=== PATIENT | female | born 1940 | race Caucasian/White ===

== ENCOUNTER → 2018-03-14 07:50 | Outpatient (CLI) | payer MEDICARE, SELFPAY ==
--- NOTE | 2018-03-14 07:55 | BI_ITS ---
MAMMOGRAPHY - BILATERAL SCREENING REASON FOR EXAM: Female, 77 years old. Routine annual screening examination. PERTINENT HISTORY: Non-contributory. TECHNIQUE: Digital bilateral breast karen (3D mammographic acquisition) in the CC and MLO projections. 2-D mediolateral oblique (MLO) and craniocaudad (CC) views of both breasts were obtained. CAD: Full Field Digital Mammography with Computer Added Detection was performed. COMPARISON: Comparison is made with prior study dated February 06, 2017 and December 22, 2015. FINDINGS: Breast Composition: There are scattered areas of fibroglandular density. There are no dominant masses or suspicious calcifications. Stable appearance of the benign appearing bilateral axillary lymph nodes. No other significant abnormalities are identified. There has been no significant change since the prior study. BI/SCREENING MAMM (CAD), BILAT IMPRESSION: Stable bilateral screening mammogram. Yearly follow-up mammogram recommended. (A) ASSESSMENT CATEGORY: BIRADS Category 2: Benign. A letter regarding these results will be sent to the patient by the facility within 30 days. Approximately 10% of breast cancers are not detected by mammography. A normal mammogram should not delay biopsy of a clinically suspicious abnormality. [id number] Electronically Signed: Alexis Morgan MD at 10:26 EDT Tel [phone], Service support ,
== END ==
PROVIDERS: Family Provider Internal Medicine; PCP Internal Medicine; Visit Provider Internal Medicine
DX: Z12.31 Encounter for screening mammogram for malignant neoplasm of breast (principal)
CPT/HCPCS: 77063; 77067

== ENCOUNTER → 2018-04-08 06:31 | Outpatient (CLI) | payer MEDICARE, SELFPAY ==
--- NOTE | 2018-04-08 06:36 | ECHOD_ITS ---
Reason For Study: Abnormal EKG Procedure This was a 2D Doppler, Color Flow transthoracic echocardiogram. The exam was of adequate technical quality. Exam performed in department. Left Ventricle Normal LV size. Left ventricular systolic function is normal. The estimated ejection fraction is 60 %. Normal diastology for age. No regional wall motion abnormalities noted. Right Ventricle Normal RV size. Normal systolic function. Atria Normal left atrium. Normal right atrium. No doppler evidence for ASD. Mitral Valve There is mild mitral annular calcification. Normal mitral valve. Mild (1+) mitral valve insufficiency. Tricuspid Valve Normal tricuspid valve. Trivial tricuspid valve insufficiency. Right ventricular systolic pressure estimated to be 29 mmHg. Aortic Valve Trisinus/trileaflet aortic valve. Mild focal aortic valve calcification. Trivial aortic valve insufficiency. Pulmonic Valve The pulmonic valve is not well visualized. Great Vessels Normal sized aortic root. Pericardium/Pleural No pericardial effusion. MMode/2D Measurements & Calculations LVIDd: 4.4 cm IVSd: 1.0 cm Ao root diam: 3.4 cm LVIDs: 2.7 cm LVPWd: 1.0 cm LA dimension: 3.6 cm RVDd: 3.4 cm FS: 39.6 % LAV(MOD-bp): 36.2 ml LA A4 area: 11.9 cm2 RA A4 area: 13.1 cm2 LAV(MOD-bp) Indexed: 20.9 ml/m2 LAV(MOD-sp2): 38.0 ml LAV(MOD-sp4): 26.9 ml Time Measurements MV dec time: 0.23 sec Doppler Measurements & Calculations MV E max gerald: 75.0 cm/sec Lat Peak E' Gerald: 7.9 cm/sec Med Peak E' Gerald: 5.7 cm/sec MV A max gerald: 93.3 cm/sec E/E' lat: 9.5 E/E' med: 13.0 MV E/A: 0.80 MV V2 max: 94.4 cm/sec MV P1/2t max gerald: 87.6 cm/sec Ao V2 max: 154.3 cm/sec MV max P.6 mmHg MV P1/2t: 91.6 msec Ao max P.5 mmHg MV V2 mean: 50.6 cm/sec MV dec slope: 280.4 cm/sec2 Ao V2 mean: 95.6 cm/sec MV mean P.2 mmHg MVA(P1/2t): 2.4 cm2 Ao mean P.1 mmHg MV V2 VTI: 33.8 cm Ao V2 VTI: 33.9 cm AI max gerald: 400.8 cm/sec LV V1 max: 99.4 cm/sec PA V2 max: 79.0 cm/sec AI max P.3 mmHg LV V1 max P.0 mmHg AI dec slope: 220.6 cm/sec2 LV V1 mean P.4 mmHg AI P1/2t: 532.2 msec LV V1 mean: 55.2 cm/sec LV V1 VTI: 20.9 cm TR max gerald: 257.1 cm/sec TR max P.4 mmHg Interpretation Summary Left ventricular systolic function is normal. The estimated ejection fraction is 60 %. There is mild mitral annular calcification. Mild (1+) mitral valve insufficiency. Trivial tricuspid valve insufficiency. Mild focal aortic valve calcification. Trivial aortic valve insufficiency. Right ventricular systolic pressure estimated to be 29 mmHg. Normal diastology for age. Ordering Physician: Harika Torre Referring Physician: Harika Torre Performed By: Blas Hanks RCS
--- NOTE | 2018-04-08 17:58 | STRESSREP_ITS ---
Stress Test Report Date: 04/08/2018 Procedure: Exercise tolerance test/imaging study Indications: Abnormal EKG Consent: Per the patient Procedure: The patient exercised on a Vamshi protocol for 5 minutes and 15 seconds completing Stage I and 2 minutes and 15 seconds of Stage II achieving a peak heart rate of 130 bpm (90 % predicted maximal heart rate) with a peak blood pressure 190/80 mmHg and a peak MET capacity of 7 METs. The baseline ECG demonstrated normal sinus rhythm; T-wave abnormality. The peak exercise ECG demonstrated continued T-wave abnormality with no significant change compared with baseline. There was a rare PVC during exercise. The functional capacity was considered average. There was no complaint of chest discomfort during exercise or recovery. The examination was discontinued secondary to dyspnea. Impression: 1. Technically adequate (percent predicted maximal heart rate greater than 85% ) exercise tolerance test 2. Peak exercise ECG with continued T-wave abnormality with no significant change compared to baseline 3. There was a rare PVC during exercise. 4. Nuclear images pending Myocardial perfusion imaging study: Technique: The patient was injected with 11.1 mCi of technetium 99m Cardiolite and subsequently rest SPECT Cardiolite nuclear imaging was obtained in the horizontal long, vertical long, and short axis views. The patient exercised on a Vamshi protocol for 5 minutes and 15 seconds completing Stage I and 2 minutes and 15 seconds of Stage II achieving a peak heart rate of 130 bpm (90 % predicted maximal heart rate) with a peak blood pressure 190/80 mmHg and a peak MET capacity of 7 METs. The patient was injected with 32.8 mCi of technetium 99m Cardiolite and subsequently stress SPECT Cardiolite nuclear imaging was obtained in the horizontal long, vertical long, and short axis views. A gated Cardiolite study at peak stress was obtained. Interpretation: Rest and stress SPECT Cardiolite nuclear imaging status post realignment, normalization, and attenuation correction, demonstrates the appearance of a small area of subtle diminished tracer uptake near the apical segments without significant change between rest and stress. There is end systolic thickening and brightening. The gated Cardiolite study demonstrates myocardial thickening and inward wall motion. The reported LVEF is 79 %. Impression: 1. Rest and stress SPECT Cardiolite nuclear imaging demonstrate myocardial perfusion changes appearing compatible with physiologic apical thinning with no myocardial perfusion changes consider diagnostic for associated stress-induced myocardial ischemia or previous myocardial injury/infarction. 2. The gated Cardiolite study reports an LVEF of 79 %. This note was generated with [employer] software. It may contain incorrect words, spelling, and punctuation that were not noted in checking the note before signing.
== END ==
PROVIDERS: Family Provider Internal Medicine; PCP Internal Medicine; Visit Provider Internal Medicine
DX: R94.31 Abnormal electrocardiogram [ECG] [EKG] (principal)
CPT/HCPCS: 78452; 93017; 93306; A9500; A4216

== ENCOUNTER → 2019-03-27 14:20 | Outpatient (CLI) | payer MEDICARE, SELFPAY ==
--- NOTE | 2019-03-27 14:24 | BI_ITS ---
MAMMOGRAPHY - BILATERAL SCREENING REASON FOR EXAM: Female, 78 years old. Routine annual screening examination. PERTINENT HISTORY: Non-contributory. TECHNIQUE: Digital bilateral breast ja (3D mammographic acquisition) in the CC and MLO projections. 2-D mediolateral oblique (MLO) and craniocaudad (CC) views of both breasts were obtained. CAD: Full Field Digital Mammography with Computer Added Detection was performed. COMPARISON: Comparison is made with prior study dated March 14, 2018 and February 06, 2017. FINDINGS: Breast Composition: There are scattered areas of fibroglandular density. There are no dominant masses or suspicious calcifications. Stable benign-appearing bilateral axillary lymph nodes. No other significant abnormalities are identified. There has been no significant change since the prior study. BI/SCREEN MAMM (CAD) W/JA BILAT IMPRESSION: Stable bilateral screening mammogram. Yearly follow-up mammogram recommended. (A) ASSESSMENT CATEGORY: BIRADS Category 2: Benign. A letter regarding these results will be sent to the patient by the facility within 30 days. Approximately 10% of breast cancers are not detected by mammography. A normal mammogram should not delay biopsy of a clinically suspicious abnormality. [id number] Electronically Signed: Alexis Morgan, at 15:28 EDT , Service support ,
--- NOTE | 2019-03-27 14:27 | BD_ITS ---
STUDY: DUAL ENERGY X-RAY ABSORPTIOMETRY / DXA REASON FOR EXAM: Female, 78 years old. The patient is postmenopausal. Loss of height. TECHNIQUE: Bone Mineral Density (BMD) measurements of lumbar spine and bilateral hips were obtained. COMPARISON: Comparison is made with prior study dated February 06, 2017. FINDINGS: Lumbar Spine (L1-L4): g/cm2 (1.186) / T-score (0.2) / Z-score (2.0) Findings are suggestive of normal bone density with a low fracture risk. Increased thoracic kyphosis. Left Femur Total: g/cm2 (1.041) / T-score (0.3) / Z-score (2.2) Left Femoral Neck: g/cm2 (0.942) / T-score (-0.7) / Z-score (1.4) Right Femur Total: g/cm2 (1.040) / T-score (0.3) / Z-score (2.2) Right Femoral Neck: g/cm2 (0.927) / T-score (-0.8) / Z-score (1.3) The T-Scores on the most recent prior examination were: Lumbar Spine (L1-L4): There has been worsening of bone density since the previous examination. Left Femur Total: which represents a worsening of 0.7%. Right Femur Total: which represents a worsening of 3.4%. BD/Dexa Bone Density Study IMPRESSION: The patient is considered normal as outlined below according to World Jero Organization (WHO) criteria with a low fracture risk. There has been worsening of bone density since the previous examination. Reference Information: The T-score is the number of standard deviations above or below the standard which is normal for young adults at their peak bone mineral density. The World Health Organization (WHO) interprets the T-scores as follows: Above -1 Normal bone density Between -1 and -2.5 Osteopenia Equal to / or below -2.5 Osteoporosis As a practical clinical guideline, osteopenia may be graded as follows: Mild -1 through -1.5 Moderate -1.6 through -2.0 Severe -2.1 through -2.4 The Z-score is the number of standard deviations above or below age-matched controls. A Z-score of less than -1.5 would be considered abnormal. References: 1. NIH Osteoporosis and Related Bone Diseases http://www.osteo.org 2. International Society for Clinical Densitometry http://www.iscd.org 3. National Osteoporosis Foundation http://www.nof.org Electronically Signed: Alexis Morgan, at 12:51 EDT , Service support ,
== END ==
PROVIDERS: Family Provider Internal Medicine; PCP Internal Medicine; Referring Provider Internal Medicine; Visit Provider Internal Medicine
DX: Z12.31 Encounter for screening mammogram for malignant neoplasm of breast (principal); Z78.0 Asymptomatic menopausal state
CPT/HCPCS: 77063; 77067; 77080

== ENCOUNTER → 2019-08-04 07:40 | Outpatient (CLI) | payer MEDICARE, SELFPAY ==
--- NOTE | 2019-08-04 07:43 | CDU_ITS ---
Reason For Study: Carotid stenosis Rt. Velocities/BP Lt. Velocities/BP Prox CCA 99.2/11.5 cm/sec. Prox CCA 106.5/17 cm/sec. Mid CCA 86.4/18.8 cm/sec. Mid CCA 95.5/17 cm/sec. Dist CCA 93.7/18.8 cm/sec. Dist CCA 88.2/20.6 cm/sec. Prox ICA 60.5/13.9 cm/sec. Prox ICA 79.1/17 cm/sec. Mid ICA 67.9/18.8 cm/sec. Mid ICA 79/23.7 cm/sec. Dist ICA 108.2/27 cm/sec. Dist ICA 76.5/26.2 cm/sec. Rt. ICA/CCA = 1.2. Lt. ICA/CCA = 0.8. Prox ECA 93.7/4.2 cm/sec. Prox ECA 108.3/9.7 cm/sec. Rt. Vert. 58.1/16.3 cm/sec. Lt. Vert. 42.8/11.6 cm/sec. Right Extracranial There is intimal thickening but no significant atherosclerotic plaque noted in the right common carotid artery. There is heterogeneous, irregular atherosclerotic plaque noted in the right internal carotid artery. There is no significant atherosclerotic plaque noted in the right external carotid artery. Antegrade flow is noted in the right vertebral artery. Left Extracranial There is intimal thickening but no significant atherosclerotic plaque noted in the left common carotid artery. There is heterogeneous, irregular atherosclerotic plaque noted in the left internal carotid artery. There is intimal thickening but no significant atherosclerotic plaque noted in the left external carotid artery. Antegrade flow is noted in the left vertebral artery. Procedure Carotid Duplex [id number]. Exam performed in department. Interpretation Summary Mild (<50%) stenosis right extracranial internal carotid. Mild (<50%) stenosis left extracranial internal carotid. Flow within the vertebral arteries is antegrade bilaterally. Ordering Physician: Harika Torre Referring Physician: Harika Torre Performed By: Micaela Ricardo RVT
== END ==
PROVIDERS: Family Provider Internal Medicine; PCP Internal Medicine; Referring Provider Internal Medicine; Visit Provider Internal Medicine
DX: I65.23 Occlusion and stenosis of bilateral carotid arteries (principal)
CPT/HCPCS: 93880

== ENCOUNTER → 2020-05-18 07:14 | Outpatient (CLI) | payer MEDICARE, SELFPAY ==
--- NOTE | 2020-05-18 07:16 | BI_ITS ---
MAMMOGRAPHY - BILATERAL SCREENING REASON FOR EXAM: Female, 79 years old. Routine annual screening examination. PERTINENT HISTORY: Non-contributory. TECHNIQUE: Digital bilateral breast ja (3D mammographic acquisition) in the CC and MLO projections. 2-D mediolateral oblique (MLO) and craniocaudad (CC) views of both breasts were obtained. CAD: Full Field Digital Mammography with Computer Added Detection was performed. COMPARISON: Comparison is made with prior examination dated 03/27/2019. FINDINGS: Breast Composition: There are scattered areas of fibroglandular density. There are no dominant masses or suspicious calcifications. Stable benign-appearing bilateral axillary lymph nodes. No other significant abnormalities are identified. There has been no significant change since the prior study. BI/SCREEN MAMM (CAD) W/JA BILAT IMPRESSION: Stable bilateral screening mammogram. Yearly follow-up mammogram recommended. (A) ASSESSMENT CATEGORY: BIRADS Category 2: Benign. A letter regarding these results will be sent to the patient by the facility within 30 days. Approximately 10% of breast cancers are not detected by mammography. A normal mammogram should not delay biopsy of a clinically suspicious abnormality. [id number] Electronically Signed: Alexis Morgan, at 8:59 EDT , Service support ,
== END ==
PROVIDERS: PCP Internal Medicine; Referring Provider Internal Medicine; Visit Provider Internal Medicine
DX: Z12.31 Encounter for screening mammogram for malignant neoplasm of breast (principal)
CPT/HCPCS: 77063; 77067

== ENCOUNTER → 2021-07-19 07:03 | Outpatient (CLI) | payer MEDICARE, SELFPAY ==
--- NOTE | 2021-07-19 07:09 | BI_ITS ---
MAMMOGRAPHY - BILATERAL SCREENING REASON FOR EXAM: Female, 80 years old. Routine annual screening examination. PERTINENT HISTORY: Non-contributory. TECHNIQUE: Digital bilateral breast ja (3D mammographic acquisition) in the CC and MLO projections. 2-D mediolateral oblique (MLO) and craniocaudad (CC) views of both breasts were obtained. CAD: Full Field Digital Mammography with Computer Added Detection was performed. COMPARISON: Comparison is made with prior examination of 05/18/2020 and 03/27/2019. FINDINGS: Breast Composition: There are scattered areas of fibroglandular density. There are no dominant masses or suspicious calcifications. Stable small benign appearing bilateral axillary lymph nodes. No other significant abnormalities are identified. There has been no significant change since the prior study. BI/SCRN MAMM (CAD)W/JA BILAT IMPRESSION: Stable bilateral screening mammogram. Yearly follow-up mammogram recommended. (A) ASSESSMENT CATEGORY: BIRADS Category 2: Benign. A letter regarding these results will be sent to the patient by the facility within 30 days. Approximately 10% of breast cancers are not detected by mammography. A normal mammogram should not delay biopsy of a clinically suspicious abnormality. [id number] Electronically Signed: Alexis Morgan MD at 11:28 EDT , Service support ,
--- NOTE | 2021-07-19 08:04 | BD_ITS ---
STUDY: DUAL ENERGY X-RAY ABSORPTIOMETRY / DXA REASON FOR EXAM: Female, 80 years old. [id number]. The patient is postmenopausal. TECHNIQUE: Bone Mineral Density (BMD) measurements of lumbar spine and bilateral hips were obtained. COMPARISON: Comparison is made with prior study 03/27/2019. FINDINGS: Lumbar Spine (L1-L4): g/cm2 (1.169) / T-score (1.1) / Z-score (3.8) Findings are suggestive of normal bone density with a low fracture risk. Left Femur Total: g/cm2 (0.919) / T-score (-0.2) / Z-score (1.9) Left Femoral Neck: g/cm2 (0.752) / T-score (-0.9) / Z-score (1.5) Right Femur Total: g/cm2 (0.960) / T-score (0.1) / Z-score (2.3) Right Femoral Neck: g/cm2 (0.792) / T-score (-0.5) / Z-score (1.8) The T-Scores on the most recent prior examination were: Lumbar Spine (L1-L4): There has been worsening of bone density since the previous examination. Left Femur Total: which represents a worsening of 5.6%. Right Femur Total: which represents a worsening of 1.4%. BD/Dexa Bone Density Study IMPRESSION: The patient is considered normal as outlined below according to World Jero Organization (WHO) criteria with a low fracture risk. There has been worsening of bone density since the previous examination. Reference Information: The T-score is the number of standard deviations above or below the standard which is normal for young adults at their peak bone mineral density. The World Health Organization (WHO) interprets the T-scores as follows: Above -1 Normal bone density Between -1 and -2.5 Osteopenia Equal to / or below -2.5 Osteoporosis As a practical clinical guideline, osteopenia may be graded as follows: Mild -1 through -1.5 Moderate -1.6 through -2.0 Severe -2.1 through -2.4 The Z-score is the number of standard deviations above or below age-matched controls. A Z-score of less than -1.5 would be considered abnormal. References: 1. NIH Osteoporosis and Related Bone Diseases www osteo.org 2. International Society for Clinical Densitometry www iscd.org 3. National Osteoporosis Foundation www nof.org Electronically Signed: Alexis Morgan MD at 14:41 EDT , Service support ,
== END ==
PROVIDERS: PCP Internal Medicine; Referring Provider Internal Medicine; Visit Provider Internal Medicine
DX: Z12.31 Encounter for screening mammogram for malignant neoplasm of breast (principal); Z78.0 Asymptomatic menopausal state
CPT/HCPCS: 77063; 77067; 77080

== ENCOUNTER 2021-12-06 09:46 | Outpatient (CLI) | payer MEDICARE, SELFPAY ==
--- NOTE | 2021-12-06 09:57 | CDU_ITS ---
Reason For Study: carotid stenosis Rt. Velocities/BP Lt. Velocities/BP Prox CCA 103.4/13.4 cm/sec. Prox CCA 107.3/18.6 cm/sec. Mid CCA 89.1/21.3 cm/sec. Mid CCA 104.7/20.0 cm/sec. Dist CCA 112.5/23.9 cm/sec. Dist CCA 89.1/16.0 cm/sec. Prox ICA 66.9/17.3 cm/sec. Prox ICA 60.4/16.0 cm/sec. Mid ICA 85.2/23.9 cm/sec. Mid ICA 74.7/20.0. cm/sec. Dist ICA 119.1/38.2 cm/sec. Dist ICA 106.0/26.5 cm/sec. Rt. ICA/CCA = 1.3. Lt. ICA/CCA = 1.0. Prox ECA 68.2/4.3 cm/sec. Prox ECA 76.0/8.2 cm/sec. Rt. Vert. 59.1/20.0 cm/sec. Lt. Vert. 52.6/12.1 cm/sec. Right Extracranial There is intimal thickening but no significant atherosclerotic plaque noted in the right common carotid artery. There is heterogeneous, irregular atherosclerotic plaque noted in the right internal carotid artery. There is intimal thickening but no significant atherosclerotic plaque noted in the right external carotid artery. Antegrade flow is noted in the right vertebral artery. Left Extracranial There is intimal thickening but no significant atherosclerotic plaque noted in the left common carotid artery. There is heterogeneous, irregular atherosclerotic plaque noted in the left internal carotid artery. There is intimal thickening but no significant atherosclerotic plaque noted in the left external carotid artery. Antegrade flow is noted in the left vertebral artery. Procedure Carotid Duplex [id number]. This is a Carotid Duplex examination using B-mode, color flow and specral Doppler. The exam was diagnostic. Exam performed in department. VL/Carotid Duplex Ultrasound Interpretation Summary Mild (<50%) stenosis right extracranial internal carotid. Mild (<50%) stenosis left extracranial internal carotid. Flow within the vertebral arteries is antegrade bilaterally. Ordering Physician: Harika Torre Performed By: Sorin Clinton RVT
== END 2021-12-06 23:59 | disposition home or self-care (01) ==
LOC: CVS 09:54
PROVIDERS: PCP Internal Medicine; Referring Provider Internal Medicine; Visit Provider Internal Medicine
DX: I65.23 Occlusion and stenosis of bilateral carotid arteries (principal)
CPT/HCPCS: 93880

== ENCOUNTER 2022-03-02 17:32 | Emergency (ER) | payer MEDICARE, SELFPAY ==
[2022-03-02 17:33] VITALS: BP 171/66; PULSE 75; RESP 16; TEMP 36.2; BMI 23.0
--- NOTE | 2022-03-02 17:58 | EKG12_ITS ---
Test Reason : ABD PAIN Blood Pressure : / mmHG Vent. Rate : 063 BPM Atrial Rate : 063 BPM P-R Int : 174 ms QRS Dur : 086 ms QT Int : 394 ms P-R-T Axes : 025 016 054 degrees QTc Int : 403 ms Normal sinus rhythm T wave abnormality, consider lateral ischemia Abnormal ECG Confirmed by YOGESH MENA, CURTIS ([id number]), medical editor SHA AMARAL ([id number]) on 03/03/2022 9:03:39 AM Referred By: WON Confirmed By:CURTIS ZUÑIGA MD
--- NOTE | 2022-03-02 17:59 | US_ITS ---
INDICATION: PAIN-ABD EXAMINATION: US Abdomen RUQ (limited) TECHNIQUE: Muro-scale and color Doppler imaging was performed of the right upper abdominal quadrant. COMPARISON: None. Findings: The liver is homogenous and normal in echogenicity and echotexture. There is no evidence of contour nodularity. No focal hepatic mass is identified. The main portal vein is normal in size and patent demonstrating hepatopetal flow. The gallbladder contains a large solitary stone in the neck. No wall thickening or pericholecystic fluid. Sonographic Gomez''s tenderness is not appreciated. There is no evidence of intrahepatic biliary ductal dilatation. The CBD is nondilated measuring 4 mm at the level of the yadira hepatis. The visualized portions of the pancreas are unremarkable without evidence of focal or diffuse enlargement. Specifically, the tail is obscured by overlying bowel gas. Right kidney measures 10.1 cm in length. It is normal in echogenicity. No focal renal lesion is identified. There is no evidence of hydronephrosis. US/Gallbladder IMPRESSION: Cholelithiasis without evidence of acute cholecystitis. Electronically Signed: Kg Noble MD at 18:49 EDT ,
[2022-03-02 18:12] LABS: Absolute Lymphocyte Count 2.68 X10^3/uL (0.83-4.51); Basophil# 0.05 X10^3/uL; Basophil% 0.4 % (0-1); Eosinophil# 0.19 X10^3/uL; Eosinophils% 1.6 % (0-5); Hematocrit 41.4 % (37-47); Hemoglobin 13.3 g/dL (12.0-15.0); Lymphocyte # 2.68 X10^3/ul (0.83-4.51); Lymphocyte % 21.9 % (19-41); Mean Corp Hgb Conc 32.1 g/dL (32-36); Mean Corpuscular Hgb 27.5 pg (27.0-32.0); Mean Corpuscular Volume 85.5 fL (81-99); Mean Platelet Vol. 9.7 fl (6.2-12.0); Monocyte# 1.28 X10^3/uL; Monocyte% 10.5 % (0-10); NRBC Flagged by Analyzer 0 % (0-5); Neutrophil # 7.96 X10^3/uL (2.7-7.7); Neutrophil % 65.2 % (47-70); Platelet Count 253 K/mm3 (150-450); RBC Distribution Width CV 13.3 % (11.6-14.6); RBC Distribution Width SD 41.3 fl (35.1-43.9); Red Blood Count 4.84 M/mm3 (4.2-5.4); White Blood Count 12.2 K/mm3 (4.4-11.0)
--- NOTE | 2022-03-02 18:20 | EDS_ITS ---
HPI <SYLVESTER Gomez - Last Filed: 03/02/22 19:02> History of Present Illness Chief Complaint: Abd Pain Narrative Narrative: 81-year-old female with past medical history of gallstones presents with right upper quadrant abdominal pain and nausea that started around 8:30 AM this morning. Pain radiates to the middle of her back. Its been constant but is just starting to subside. It does seem worse with eating and today she had decreased appetite. She had rice crispy cereal and toast and egg for lunch. She denies vomiting and reports normal bladder and bowel movements. She has had similar pain in the past and was evaluated by general surgeon to discuss getting her gallbladder removed but she decided against it. Surgical history includes BTL and hysterectomy. She denies alcohol or smoking. PFSH <SYLVESTER Gomez Last Filed: 03/02/22 19:02> PFSH Allergy/AdvReac Type Severity Reaction Status Date / Time amoxicillin Allergy Unknown Verified 07/21/16 10:28 Social History Smoking Status: Never smoker ROS <SYLVESTER Gomez - Last Filed: 03/02/22 19:02> ROS ED ROS Narrative Constitutional: Negative for fever, chills, malaise. Eyes: Negative for visual change. ENT: Negative for sore throat, ear pain, rhinorrhea. CVS: Negative for palpitations, chest pain, syncope. Respiratory: Negative for shortness of breath, cough, orthopnea. GI: Positive for abdominal pain, nausea. Negative for vomiting, diarrhea, constipation, melena, hematochezia. : Negative for dysuria, hematuria or frequency. Neuro: Negative for headache, motor/sensory dysfunction. Skin: Negative for rash, abscess, or wound. Musc: Negative for joint pain, swelling, trauma. Heme: Negative for easy bruising, bleeding, lymphadenopathy. EXAM <SYLVESTER Gomez Last Filed: 03/02/22 19:02> Physical Exam Narrative Exam Narrative: CONST: Patient sitting in no acute distress. EYES: Normal inspection. ENT: Normal inspection, moist mucous membranes. NECK: Normal inspection. RESP: No respiratory distress, CTAB. CVS: Regular rate and rhythm, no murmur, no gallop. ABD: Soft with minimal RUQ tenderness, no guarding or rebound, nondistended, no hepatosplenomegaly. Negative Gomez sign. Back: Normal inspection, no CVA tenderness. SKIN: Color normal, no rash, warm, dry, intact. EXTREMITIES: Normal appearance, no pedal edema. NEURO: Oriented x4. PSYCH: Normal affect. Const Vital Signs: 03/02/22 17:33 03/02/22 17:33 Temperature 97.1 F L 97.1 F L Temperature Source Temporal Temporal Pulse Rate 75 75 Respiratory Rate 16 16 Blood Pressure 171/66 H 171/66 H Blood Pressure Mean 101 101 <Dr. Praveen Larson MD - Last Filed: 03/02/22 19:12> Physical Exam Const Vital Signs: 03/02/22 17:33 03/02/22 17:33 Temperature 97.1 F L 97.1 F L Temperature Source Temporal Temporal Pulse Rate 75 75 Respiratory Rate 16 16 Blood Pressure 171/66 H 171/66 H Blood Pressure Mean 101 101 [facility] <SYLVESTER Gomez - Last Filed: 03/02/22 19:02> [facility] Narrative Medical decision making narrative: Patient presents with nausea and right upper quadrant abdominal tenderness exacerbated by eating. She appears well nontoxic. BP 171/66, otherwise unremarkable vital signs. Heart is regular, lungs clear, she has really very minimal right upper quadrant tenderness. No peritoneal signs and negative Gomez sign. Labs show white count of 12.2, normal electrolytes, creatinine 1.18. Total bilirubin is 1.1 with normal liver enzymes and lipase. RUQ shows cholelithiasis without acute cholecystitis. Normal CBD. Patient has minimal pain here and actually declined pain medication. Serial abdominal exams are benign. We discussed that this is biliary colic and to eat a bland diet and follow-up with general surgery but to return for new or worsening symptoms. 1. Biliary colic Lab Data Attestation: I reviewed the patient's lab results. Labs: Laboratory Results - last 24 hr 03/02/22 03/02/22 17:45 17:45 WBC 12.2 H RBC 4.84 Hgb 13.3 Hct 41.4 MCV 85.5 MCH 27.5 MCHC 32.1 RDW Std Deviation 41.3 RDW Coeff of Vanessa 13.3 Plt Count 253 MPV 9.7 Immature Gran % (Auto) 0.400 Neut % (Auto) 65.2 Lymph % (Auto) 21.9 [place] % (Auto) 10.5 H Eos % (Auto) 1.6 Baso % (Auto) 0.4 Absolute Neuts (auto) 8.0 H Absolute Lymphs (auto) 2.68 Nucleated RBC % 0 Sodium 137 Potassium 3.8 Chloride 105 Carbon Dioxide 28.0 Anion Gap 4 L BUN 19 H Creatinine 1.18 H Estim Creat Clear Calc 30.93 Est GFR (MDRD) Af Amer 57 L Est GFR (MDRD) Non-Af 47 L BUN/Creatinine Ratio 16.1 Glucose 112 H Calcium 10.5 H Total Bilirubin 1.10 H AST 16 ALT 22 Alkaline Phosphatase 178 H Total Protein 8.1 Albumin 4.1 Globulin 4.0 Albumin/Globulin Ratio 1.0 Lipase 46 L Radiography Diagnostic Testing: Clinical Impression(s) from Imaging Studies Gallbladder Ultrasound 03/02/22 17:59 IMPRESSION: Cholelithiasis without evidence of acute cholecystitis. Electronically Signed: Kg Noble MD at 18:49 EDT , EKG Initial EKG: Attestation: I personally reviewed and interpreted this EKG as follows: Interpretation: Sinus Rhythm Comments: Normal sinus rhythm, DE interval 174 ms, QRS duration 86 ms, QTC 403 ms <Dr. Praveen Larson MD - Last Filed: 03/02/22 19:12> [facility] Narrative Medical decision making narrative: Patient presents with nausea and right upper quadrant abdominal tenderness exacerbated by eating. She appears well nontoxic. BP 171/66, otherwise unremarkable vital signs. Heart is regular, lungs clear, she has really very minimal right upper quadrant tenderness. No peritoneal signs and negative Gomez sign. Labs show white count of 12.2, normal electrolytes, creatinine 1.18. Total bilirubin is 1.1 with normal liver enzymes and lipase. RUQ shows cholelithiasis without acute cholecystitis. Normal CBD. Patient has minimal pain here and actually declined pain medication. Serial abdominal exams are benign. We discussed that this is biliary colic and to eat a bland diet and follow-up with general surgery but to return for new or worsening symptoms. I have personally performed a face to face assessment of the patient and have reviewed the LITTLE Note. I performed a substantive portion of the visit including all aspects of the following. My crain findings include: History is [81-year-old female that I am seeing with our physician child welfare assistant. Patient plan right upper quadrant abdominal pain. Began this morning. Asso ciated nausea. No diarrhea. No fever. She has had symptoms like this before. She is seen a surgeon and discussed to have an elective cholecystectomy but she has held off because she was feeling better. She has a known history of gallstones.] Exam is [81-year-old no acute distress vital signs stable afebrile. Lungs are clear. Heart regular rate and rhythm. Abdomen soft, nontender, nondistended normal bowel sounds no peritoneal signs. No Gomez sign. No pulsatile mass. Moving all 4 extremities otherwise exam normal.] Medical Decision Making [81-year-old with known gallstones. Right upper quadrant pain. Labs showed a white count 12.2 normal H&H. Electrolytes unremarkable creatinine 1.1. Liver enzymes unremarkable other than total bilirubin of 1.1. Alk phos of 178. Lipase normal. Ultrasound showed cholelithiasis but no cholecystitis.] Other additions or changes: Patient doing well at 7:10 PM will be discharged home with outpatient follow-up with her general surgeon.] 1. Biliary colic Lab Data Labs: Laboratory Results - last 24 hr 03/02/22 03/02/22 17:45 17:45 WBC 12.2 H RBC 4.84 Hgb 13.3 Hct 41.4 MCV 85.5 MCH 27.5 MCHC 32.1 RDW Std Deviation 41.3 RDW Coeff of Vanessa 13.3 Plt Count 253 MPV 9.7 Immature Gran % (Auto) 0.400 Neut % (Auto) 65.2 Lymph % (Auto) 21.9 [place] % (Auto) 10.5 H Eos % (Auto) 1.6 Baso % (Auto) 0.4 Absolute Neuts (auto) 8.0 H Absolute Lymphs (auto) 2.68 Nucleated RBC % 0 Sodium 137 Potassium 3.8 Chloride 105 Carbon Dioxide 28.0 Anion Gap 4 L BUN 19 H Creatinine 1.18 H Estim Creat Clear Calc 30.93 Est GFR (MDRD) Af Amer 57 L Est GFR (MDRD) Non-Af 47 L BUN/Creatinine Ratio 16.1 Glucose 112 H Calcium 10.5 H Total Bilirubin 1.10 H AST 16 ALT 22 Alkaline Phosphatase 178 H Total Protein 8.1 Albumin 4.1 Globulin 4.0 Albumin/Globulin Ratio 1.0 Lipase 46 L Radiography Diagnostic Testing: Clinical Impression(s) from Imaging Studies Gallbladder Ultrasound 03/02/22 17:59 IMPRESSION: Cholelithiasis without evidence of acute cholecystitis. Electronically Signed: Kg Noble MD at 18:49 EDT , Discharge Plan Triage Chief Complaint: Abd Pain ED Midlevel Provider: Delfina Thomason ED Provider: Praveen Larson Dx/Rx/DC Orders Clinical Impression: Biliary colic Instructions: ED Gallstones with Biliary Colic Primary Care Provider: Harika Torre Referrals: Gary Aguiar MD [STAFF PHYSICIAN] - Harika Torre DO [Primary Care Provider] - Activity Restrictions/Additional Instructions: Avoid fried or fatty foods. Take tylenol or ibuprofen as needed for pain and follow-up with general surgery to discuss having her gallbladder removed. If your pain worsens in the meantime or you develop a fever etc. come back to the ER. Disposition Disposition: Home, Self Care
[2022-03-02 18:28] LABS: AST(SGOT) 16 U/L (15-37); Alanine Aminotransfer ALT/SGPT 22 U/L (13-56); Albumin, Serum 4.1 g/dL (3.2-5.0); Alkaline Phosphatase 178 U/L (45-117); Anion Gap 4 (5-15); BUN 19 mg/dL (7-18); BUN/Creat Ratio 16.1 RATIO (10-20); Calcium,Total 10.5 mg/dL (8.5-10.1); Chloride 105 mmol/L (98-107); Creatinine, Serum 1.18 mg/dL (0.55-1.02); EST Glomerular Filtration Rate 47 mL/min (>60); Est Glom Filt Rate - Afr Amer 57 mL/min (>60); Estimated Creatinine Clearance 30.93 ml/min; Glucose 112 mg/dL (74-106); Lipase 46 U/L (73-393); Potassium 3.8 mmol/L (3.5-5.1); Protein, Total 8.1 g/dL (6.4-8.2); Sodium Level 137 mmol/L (136-145)
== END 2022-03-02 19:12 | disposition home or self-care (01) ==
PROVIDERS: Physician Assistant; Emergency Provider Emergency Medicine; PCP Internal Medicine; Visit Provider Emergency Medicine
DX: K80.70 Calculus of gallbladder and bile duct without cholecystitis without obstruction (principal); M54.9 Dorsalgia, unspecified; R11.0 Nausea
CPT/HCPCS: 76705; 80053; 83690; 85025; 93005; 99283; A4216

== ENCOUNTER 2022-03-09 05:57 | Day surgery (SDC) | payer MEDICARE, SELFPAY ==
[2022-03-09] VITALS (8 sets, daily range): BP systolic 115–149; BP diastolic 50–80; PULSE 71–92; RESP 16–18; TEMP 35.9–37.3; O2SAT 92–100; BMI 23.1
[2022-03-09] MEDS: Lactated Ringers 1,000 ML 15 ML IV (06:31)
--- NOTE | 2022-03-09 06:45 | HP.PCM_ITS ---
History and Physical Date of Admission: 03/09/22 Intake Vital Signs ? 03/02/2217:33 03/07/2213:25 Height 5 ft 3 in 5 ft 2.5 in Weight: 129 lb 13.636 oz 125 lb BMI 23.0 22.5 BP 171/66 H 129/74 H Blood Pressure Location ? Rt brachial Position ? Sitting Respiration 16 16 Pulse 75 ? Temp 97.1 F L ? Temp Source Temporal ? Intake Visit Reasons:?ER Followup, 03/02/22, Gallstones Chief Complaint: gallstones Orthophotography Technician Required: No Is patient in pain?: Yes (RUQ abdomen and into back) Allergies amoxicillin Allergy (Verified 03/07/22 13:26) Unknown Medications aspirin 81 mg tablet,delayed release 81 mg PO DAILY 03/07/22 [History Confirmed 03/07/22] atenolol 25 mg tablet 25 mg PO 03/07/22 [History Confirmed 03/07/22] atorvastatin 10 mg tablet 10 mg PO 03/07/22 [History Confirmed 03/07/22] coenzyme Q10 75 mg capsule (Ultra CoQ10) 75 mg PO DAILY 03/07/22 [History Confirmed 03/07/22] losartan 50 mg tablet 50 mg PO 03/07/22 [History Confirmed 03/07/22] spironolactone 25 mg tablet 25 mg PO 03/07/22 [History Confirmed 03/07/22] vitamin D3 1,250 mcg (50,000 unit)-vitamin K2 200 mcg capsule cap PO 03/07/22 [History Confirmed 03/07/22] PFSH Medical History?(Updated 03/07/22 @ 13:43 by Ksenia Eid) CAD (coronary artery disease) Gallstones HTN (hypertension) Surgical History?(Updated 03/07/22 @ 13:25 by Ksenia Eid) S/P hysterectomy S/P tubal ligation Social History?(Updated 03/07/22 @ 13:25 by Ksenia Eid) Smoking Status:? Never smoker alcohol intake:? never HPI HPI HPI: LENA JASON, is a 81 F who presents to the office today for right upper quadrant pain.? The patient says this is been present for 2 years.? She had an ultrasound 2 years ago and was found to have gallstone but did not want surgery at that time.? Over the last few days has been getting worse. ROS General General: Yes weight change and fatigue; No appetite, colon cancer, breast cancer or weakness HEENT HEENT: No difficulty swallowing, eye injury, eye surgery, swollen glands or hoarseness Endo Endocrine: No thyroid disease, diabetes mellitus, thyroid cancer, Hair loss, heat intolerance or cold intolerance Skin Skin: No rash or changing moles Breast Breast: No left breast lump, right breast lump, nipple discharge, breast pain, abnormal mammogram, abnormal US or breast enlargement Musc Musculoskeletal: No back problems, arthritis, rheumatoid arthritis, gout or joint pain Cardio Cardiovascular: Yes murmur and high blood pressure; No pacemaker, heart disease, atrial fibrillation, heart attack, heart stent, palpitations, shortness of breat with exertion or chest pain Psych Psychiatric: No depression, anxiety or hearing voices Resp Respiratory: No shortness of breath, No sleep apnea, No cough, No COPD, No asthma, No emphysema and No wheezing Gastro Gastrointestinal: No abdominal pain, No nausea or vomiting, No diarrhea, No constipation, No blood in stool, No acid reflux, No hemorrhoids, No ulcers, Yes gallbladder problem and No black,tarry stools Lee Hematologic: No blood thinners, No blood disorders, No bleeding, No anemia and No blood clots Neuro Neurologic: No system reviewed and no additional complaints, except as documented, No as per HPI, No abnormal gait, No abnormal hearing, No abnormal movements, No abnormal speech, No behavioral changes, No burning sensations, No confusion, No convulsions, No disequilibrium, No dizziness, No localized weakness, No frequent falls, No headache(s), No lack of coordination, No loss of vision, No memory loss, No numbness, No other visual disturbances, No radicular pain, No restless legs, No sensory deficit, No syncope, No tingling, No tremor(s), No weakness and No other Exam Const General: cooperative Orientation: alert and oriented x3 HENMT Head: normal to inspection Neck Neck: normal visual inspection and full ROM Chest Chest palpation & inspection: normal inspection of the chest Resp Effort & Inspection: normal respiratory effort Auscultation: clear to auscultation bilaterally Cardio Rate: regular rate Rhythm: regular rhythm GI Inspection: non-distended Palpation: soft and tender in the RUQ Skin General: no rashes or lesions noted Neuro General: patient alert and patient oriented x3 Extrem General: full ROM Psych Appearance: grossly normal Mental Status: mental status grossly normal Assessment and Plan Assessment and Plan (1) Gallstones: ?Status:?Acute ?Plan: Patient has a large gallstone and is having right upper quadrant pain.? She is unable to tolerate diet.? I recommended laparoscopic cholecystectomy. I discussed the procedure in detail with the patient.? I discussed the risks, benefits, and alternatives of the procedure.? I discussed the risks including but not limited to bleeding, infection, injury to surrounding organs such as the liver, bile duct, bowels.? I did discuss the possibility of having to convert to an open procedure as well as the possibility that if any injuries occurred this may necessitate further surgery at a tertiary care center. Gary Aguiar MD Pager: [facility] [address] [place] [address], [address] [place] [phone] Office: I have seen and reexamined the patient and there are no changes
--- NOTE | 2022-03-09 07:00 | RAD_ITS ---
INDICATION: PAIN EXAMINATION/TECHNIQUE: 2 limited spot intraoperative films are presented for evaluation. Total Fluoroscopic Time: 10.4 seconds AND number of Fluoroscopic Images: A cine clip is submitted for assessment. COMPARISON: Ultrasound from 03/02/2022 FINDINGS: There is a stone within the gallbladder. There are no filling defects within the intra or extrahepatic bile ducts. There is no biliary ductal dilatation. There is free passage into the duodenum. RAD/Cholangiogram/ O R,Initial IMPRESSION: Negative intraoperative cholangiogram. Please see intraoperative findings for additional details. Cholelithiasis. Electronically Signed: Zaid Vo, at 9:59 EDT ,
[2022-03-09] MEDS: Bupivacaine Mpf 0.5% 30 ML VIAL (07:12)
[2022-03-09] MEDS: Clindamycin 900 MG/50 ML BAG 75 MG IV (07:24)
--- NOTE | 2022-03-09 07:30 | GALL_PTH ---
PATIENT: LENA JASON LOC: [facility] [place] U#:[id number] AGE/SX: 81/F ROOM: RE03/09/[address]: Dr. Gary Aguiar MD : 1940 BED: DIS: 03/09/2022 SPEC #: [id number] RECD: 03/09/22 11:08 STATUS: TYRONE ARTEAGA #: [id number] JOHN: 03/09/22 07:[address]: Gary Aguiar DEPT: SURGICAL PATHOLOGY RECD BY: Mary Kay Garza ENTERED: 03/09/22 12:02 SP TYPE: ROGELIO CHAHAL DR: Dr. Harika Torre DO Tissues: Gallbladder, NOS Procedures: Surgery Specimen Level III HEADER OPERATION: Laparoscopic cholecystectomy with IOC PRE-OP DIAGNOSIS: Gallstones TISSUE SUBMITTED: Gallbladder MICROSCOPIC DIAGNOSIS Gallbladder, cholecystectomy: Chronic cholecystitis and cholelithiasis. SJ:max 03/10/2022 MICROSCOPIC DESCRIPTION Slides are reviewed. GROSS DESCRIPTION Received is one container labeled with the patient's name and designated gallbladder. The specimen consists of a gallbladder measuring 7 cm in length and up to 3.5 cm in diameter. The external surface is pink-ponce, smooth and glistening for the most part. Focally it is granular, hemorrhagic and contains cautery artifact. The gallbladder contains green-yellow mucoid bile and one ovoid brownish-black stone measuring 2.5 cm in greatest dimension. A few smaller stones are also noted measuring in aggregate 1 x 1 x 0.2 cm. The mucosa is bile-stained and without any mass lesions. The gallbladder wall measures up to 0.2 cm in thickness. Piping Manager sections from the gallbladder and the cystic duct are submitted in one cassette. / SJ:max 03/09/2022 TC:3 CPT: 51395
--- NOTE | 2022-03-09 08:26 | PCM.OPRPT ---
Report of Operation Date of Procedure: 03/09/22 Pre-Operative Diagnosis: Chronic cholecystitis with cholelithiasis Post-Operative Diagnosis: Same Surgery/Procedure Performed:: Laparoscopic cholecystectomy with cholangiogram Specimen's removed: Gallbladder Description of Procedure: After obtaining informed consent patient was brought back to the operating room. General anesthesia was induced. The abdomen was prepped and draped in usual sterile fashion. A small midline incision was made superior to the umbilicus and deepened to the level of fascia. The fascia was elevated and incised. Next the peritoneum was elevated and incised in the same fashion. Finger sweep was performed and the Martin trocar was placed into the abdomen. The balloon was inflated. The abdomen was inflated to 15 mmHg. Next a camera was introduced into the abdomen and the abdomen was inspected. Next under direct visualization three 5-mm ports were placed one subxiphoid and 2 subcostal. Next the gallbladder was elevated and retracted toward the right shoulder. The peritoneum was stripped from the gallbladder. The infundibulum was located and retracted laterally. Next the triangle of Calot was dissected and the cystic duct and cystic artery were identified. Cholangiograms were performed. The Lopez clamp was used to clamp across the infundibulum and the catheter needle was inserted into the gallbladder. Under fluoroscopy contrast was instilled into the gallbladder and the common duct, cystic duct as well as proximal hepatic ducts were identified. There was good filling of the duodenum. There were no filling defects noted in the common bile duct. The clamp was removed as well as the needle and the infundibulum was grasped once more. Three hemolock clips were placed across the cystic duct. The cystic duct was then divided leaving 2 clips on the stump. The cystic artery was clipped and divided in the same fashion. The hook cautery was then used to take the gallbladder off of the gallbladder bed. Hemostasis was obtained. Gallbladder fossa was irrigated and no active bleeding or bile leakage was noted. Next the camera was introduced in the subxiphoid port. An Endopouch bag was placed through the umbilical port and the gallbladder was placed into it. The gallbladder was then removed through the umbilical incision. The camera was then reinserted through the umbilical port. The gallbladder fossa was inspected once more and noted to be hemostatic with no leaking bile. The abdomen was suctioned dry. The 5 mm ports were removed under direct visualization. The umbilical port was then removed and the air was removed from the abdomen. Next using an 0 Vicryl suture the umbilical fascia was closed in a [id number] fashion. The umbilical port site was irrigated local anesthetic was administered to all the incisions. All the incisions were closed with interrupted subcuticular 4-0 Monocryl sutures followed by Steri-Strips and dressings. The patient was awoken and taken to PACU in stable condition. Admit VTE Documentation VTE Mechan Device Prophylaxis: SCD's
--- NOTE | 2022-03-09 08:27 | DCINST_ITS ---
Discharge Instructions Procedure Gallbladder Diet Discharge Diet: Light diet - advance as tolerated Activity Discharge Activity: May Not Drive (for 2-3 days or while taking narcotic pain medications.) and - (Do not drive, work heavy equipment or sign legal documents for 24 hours.) May shower in (days): 1 Lifting Restrictions: 20 lbs for 2 weeks Additional Activity Instructions:: Pain medication may cause nausea. You should typically eat light foods as you take your pain medications. Pain medication may also cause constipation. If this is a problem for you, please discuss with your doctor. Dressing / Incision Call your doctor if your incision/area has: Continuous Slow Oozing, Sudden Increased Bleeding, Increased Pain/ Swelling, Increased Redness and Foul Smelling Discharge Call your doctor if you observe: Fever of 101 or Higher Suture Line Care: Avoid Pulling/Pushing and Avoid Pinching/Bending Remove Dressing in: 2 days Additional Dressing/Incision Instructions:: Leave operative bandaids on for 2 days. When you remove dressing, leave Steri-Strips on until your follow-up appointment, or until the Steri-Strips fall off on their own. Follow Up Care Please Follow Up With: Gary Aguiar MD When: Please call to schedule 2 week follow up appointment. [phone] Test Results: Test results from this visit will be discussed in further detail at your follow- up appointment, if applicable. Discharge Plan Admission Attending Provider: Gary Aguiar Primary Care Provider: Harika Torre Discharge Orders/Prescriptions Prescriptions: New oxycodone-acetaminophen [Percocet] 5-325 mg tablet 1 tab PO Q4H PRN (Reason: pain) 5 Days Qty: 20 0RF No Action atenolol 25 mg tablet 25 mg PO DAILY Label Comments: TAKE 1 TABLET BY MOUTH ONCE DAILY spironolactone 25 mg tablet 25 mg PO DAILY atorvastatin 10 mg tablet 10 mg PO DAILY losartan 50 mg tablet 50 mg PO DAILY aspirin 81 mg tablet,delayed release (DR/EC) 81 mg PO DAILY vitamin D3-vitamin K2 1,250-200 mcg capsule 1 cap PO DAILY Ultra CoQ10 75 mg capsule 75 mg PO DAILY Referrals / Follow Up: Harika Torre DO [Primary Care Provider] - Disposition Disposition (needs filled in before D/C Order can be placed): Home, Self Care
[2022-03-09] MEDS: Acetaminophen 325 MG Tablet PO (10:23)
[2022-03-09] MEDS: oxyCODONE 5 MG Tablet PO (10:23)
== END 2022-03-09 11:05 | disposition home or self-care (01) ==
LOC: SDC 05:58 → AC 05:59
PROVIDERS: PCP Internal Medicine; Referring Provider Surgery; Visit Provider Surgery
PROC: (CPT 47610; principal; 2022-03-09 07:10)
DX: K80.10 Calculus of gallbladder with chronic cholecystitis without obstruction (principal); I25.10 Atherosclerotic heart disease of native coronary artery without angina pectoris; I10 Essential (primary) hypertension; E78.00 Pure hypercholesterolemia, unspecified; Z97.4 Presence of external hearing-aid; Z90.710 Acquired absence of both cervix and uterus; Z98.51 Tubal ligation status
CPT/HCPCS: 47563; 00790; 74300; 76000; 88304; J7120; J2405

== ENCOUNTER → 2022-08-18 | Outpatient (CLI) | payer MEDICARE, SELFPAY ==
--- NOTE | 2022-08-18 08:03 | BI_ITS ---
MAMMOGRAPHY - BILATERAL SCREENING REASON FOR EXAM: Female, 81 years old. Routine annual screening examination. PERTINENT HISTORY: Non-contributory. TECHNIQUE: Digital bilateral breast ja (3D mammographic acquisition) in the CC and MLO projections. 2-D mediolateral oblique (MLO) and craniocaudad (CC) views of both breasts were obtained. CAD: Full Field Digital Mammography with Computer Added Detection was performed. COMPARISON: Comparison is made with prior study dated 07/19/2021 and 05/18/2020. FINDINGS: Breast Composition: There are scattered areas of fibroglandular density. There are no dominant masses or suspicious calcifications. Stable small benign-appearing bilateral axillary lymph nodes. No other significant abnormalities are identified. There has been no significant change since the prior study. BI/SCRN MAMM (CAD)W/JA BILAT IMPRESSION: Stable bilateral screening mammogram. Yearly follow-up mammogram recommended. (A) ASSESSMENT CATEGORY: BIRADS Category 2: Benign. A letter regarding these results will be sent to the patient by the facility within 30 days. Approximately 10% of breast cancers are not detected by mammography. A normal mammogram should not delay biopsy of a clinically suspicious abnormality. [id number] Electronically Signed: Alexis Morgan MD at 9:09 EST ,
== END | disposition home or self-care (01) ==
LOC: OPBI 08:02
PROVIDERS: PCP Internal Medicine; Visit Provider Internal Medicine
DX: Z12.31 Encounter for screening mammogram for malignant neoplasm of breast (principal)
CPT/HCPCS: 77063; 77067

== ENCOUNTER → 2023-08-08 | Outpatient (CLI) | payer MEDICARE, SELFPAY ==
--- NOTE | 2023-08-08 08:51 | CDU_ITS ---
Reason For Study: Carotid Stenosis Rt. Velocities/BP Lt. Velocities/BP Prox CCA 90/15 cm/sec. Prox CCA 90/16 cm/sec. Mid CCA 65/15 cm/sec. Mid CCA 77/16 cm/sec. Dist CCA 72/15 cm/sec. Dist CCA 74/18 cm/sec. Prox ICA 57/16 cm/sec. Prox ICA 77/17 cm/sec. Mid ICA 60/18 cm/sec. Mid ICA 86/22 cm/sec. Dist ICA 116/27 cm/sec. Dist ICA 80/19 cm/sec. Rt. ICA/CCA = 1.8. Lt. ICA/CCA = 1.1. Prox ECA 78/9 cm/sec. Prox ECA 94/7 cm/sec. Rt. Vert. 62/14 cm/sec. Lt. Vert. 51/12 cm/sec. Right Extracranial There is heterogeneous, irregular atherosclerotic plaque noted in the right common carotid artery. There is heterogeneous, irregular atherosclerotic plaque noted in the right internal carotid artery. There is heterogeneous, irregular atherosclerotic plaque noted in the right external carotid artery. Antegrade flow is noted in the right vertebral artery. Left Extracranial There is heterogeneous, irregular atherosclerotic plaque noted in the left common carotid artery. There is heterogeneous, irregular atherosclerotic plaque noted in the left internal carotid artery. There is intimal thickening but no significant atherosclerotic plaque noted in the left external carotid artery. Antegrade flow is noted in the left vertebral artery. Procedure Carotid Duplex [id number]. This is a Carotid Duplex examination using B-mode, color flow and specral Doppler. Exam performed in department. VL/Carotid Duplex Ultrasound Interpretation Summary Mild (<50%) stenosis right extracranial internal carotid. Mild (<50%) stenosis left extracranial internal carotid. Patent and antegrade vertebrals bilaterally. Ordering Physician: Harika Torre Referring Physician: Harika Torre Performed By: Edna Dunaway, RDCS, RVT
== END | disposition home or self-care (01) ==
LOC: CVS 08:48
PROVIDERS: PCP Internal Medicine; Referring Provider Internal Medicine; Visit Provider Internal Medicine
DX: I65.23 Occlusion and stenosis of bilateral carotid arteries (principal)
CPT/HCPCS: 93880

== ENCOUNTER → 2023-09-06 | Outpatient (CLI) | payer MEDICARE, SELFPAY ==
--- NOTE | 2023-09-06 14:48 | BI_ITS ---
MAMMOGRAPHY - BILATERAL SCREENING REASON FOR EXAM: Female, 83 years old. Routine annual screening examination. PERTINENT HISTORY: Non-contributory. TECHNIQUE: Digital bilateral breast ja (3D mammographic acquisition) in the CC and MLO projections. 2-D mediolateral oblique (MLO) and craniocaudad (CC) views of both breasts were obtained. CAD: Full Field Digital Mammography with Computer Added Detection was performed. COMPARISON: Comparison is made with prior study dated August 18, 2022 and July 19, 2021. FINDINGS: Breast Composition: There are scattered areas of fibroglandular density. There are no dominant masses or suspicious calcifications. Stable small benign-appearing bilateral axillary lymph nodes. No other significant abnormalities are identified. There has been no significant change since the prior study. BI/SCRN MAMM (CAD)W/JA BILAT IMPRESSION: Stable bilateral screening mammogram. Yearly follow-up mammogram recommended. (A) ASSESSMENT CATEGORY: BIRADS Category 2: Benign. A letter regarding these results will be sent to the patient by the facility within 30 days. Approximately 10% of breast cancers are not detected by mammography. A normal mammogram should not delay biopsy of a clinically suspicious abnormality. [id number] Electronically Signed: Alexis Morgan MD at 7:33 EST ,
--- NOTE | 2023-09-06 14:55 | BD_ITS ---
STUDY: DUAL ENERGY X-RAY ABSORPTIOMETRY / DXA REASON FOR EXAM: Female, 83 years old. [id number] TECHNIQUE: Bone Mineral Density (BMD) measurements of lumbar spine and bilateral hips were obtained. COMPARISON: Comparison is made with prior study July 19, 2021. FINDINGS: Lumbar Spine (L1-L4): g/cm2 (1.117) / T-score (0.9) / Z-score (3.6) Findings are suggestive of normal bone density with a low fracture risk. Left Femur Total: g/cm2 (0.894) / T-score (-0.4) / Z-score (1.8) Left Femoral Neck: g/cm2 (0.780) / T-score (-0.6) / Z-score (1.8) Right Femur Total: g/cm2 (0.883) / T-score (-0.5) / Z-score (1.7) Right Femoral Neck: g/cm2 (0.783) / T-score (-0.6) / Z-score (1.8) The T-Scores on the most recent prior examination were: Lumbar Spine (L1-L4): There has been worsening of bone density since the previous examination. Left Femur Total: which represents a worsening of 2.7%. Right Femur Total: which represents a worsening of 8%. BD/Dexa Bone Density Study IMPRESSION: The patient is considered normal as outlined below according to World Jero Organization (WHO) criteria with a low fracture risk. There has been worsening of bone density since the previous examination. Reference Information: The T-score is the number of standard deviations above or below the standard which is normal for young adults at their peak bone mineral density. The World Health Organization (WHO) interprets the T-scores as follows: Above -1 Normal bone density Between -1 and -2.5 Osteopenia Equal to / or below -2.5 Osteoporosis As a practical clinical guideline, osteopenia may be graded as follows: Mild -1 through -1.5 Moderate -1.6 through -2.0 Severe -2.1 through -2.4 The Z-score is the number of standard deviations above or below age-matched controls. A Z-score of less than -1.5 would be considered abnormal. References: 1. NIH Osteoporosis and Related Bone Diseases www osteo.org 2. International Society for Clinical Densitometry www iscd.org 3. National Osteoporosis Foundation www nof.org Electronically Signed: Alexis Morgan MD at 15:20 EST ,
== END | disposition home or self-care (01) ==
LOC: OPBD 14:47
PROVIDERS: PCP Internal Medicine; Referring Provider Internal Medicine; Visit Provider Internal Medicine
DX: Z12.31 Encounter for screening mammogram for malignant neoplasm of breast (principal); Z78.0 Asymptomatic menopausal state
CPT/HCPCS: 77063; 77067; 77080

== ENCOUNTER → 2024-05-06 | Outpatient (CLI) | payer MEDICARE, SELFPAY ==
--- NOTE | 2024-05-06 09:34 | ECHOCS_ITS ---
Reason For Study: Nonrheumatic AV Disorder Procedure This was a 2D Doppler, Color Flow transthoracic echocardiogram. Contrast injection was performed. The study was technically difficult. Exam performed in department. Left Ventricle Normal LV size. The estimated ejection fraction is 65 %. Unable to assess diastolic dysfunction. No regional wall motion abnormalities noted. Right Ventricle Normal RV size. Normal systolic function. Atria The left and right atria are normal. No doppler evidence for ASD. Mitral Valve There is moderate mitral annular calcification. There is no mitral valve stenosis. Trivial mitral valve insufficiency. Tricuspid Valve There is no tricuspid stenosis. Trivial tricuspid valve insufficiency. Unable to estimate RV systolic pressure due to insufficient tricuspid regurgitant envelope. Aortic Valve Trisinus/trileaflet aortic valve. Aortic sclerosis, no stenosis. There is no aortic stenosis. Mild (1+) aortic valve insufficiency. Pulmonic Valve There is no pulmonic valvular stenosis. No pulmonic valve insufficiency. Great Vessels Normal aortic root. Pericardium/Pleural No pericardial effusion. Medication 22 gauge I.V. with prn adaptor inserted into right arm. Diluted definity 2ml given slow IV push to enhance endocardial definition. MMode/2D Measurements & Calculations LVIDd: 4.1 cm IVSd: 1.0 cm LVOT diam: 2.0 cm LVIDs: 2.7 cm LVPWd: 0.82 cm RVDd: 3.6 cm FS: 33.7 % LVOT area: 3.3 cm2 Ao root diam: 3.3 cm LAV(MOD-bp): 36.3 ml LVAd ap4: 26.1 cm2 LA dimension: 4.0 cm LAV(MOD-bp) Indexed: 21.5 ml/m2 LVLd ap4: 7.6 cm LAV(MOD-sp2): 46.6 ml EDV(MOD-sp4): 75.2 ml LAV(MOD-sp4): 27.9 ml EDV(sp4-el): 76.5 ml LVAs ap4: 13.7 cm2 LVLs ap4: 6.0 cm ESV(MOD-sp4): 26.8 ml ESV(sp4-el): 26.6 ml EF(MOD-sp4): 64.4 % EF(sp4-el): 65.2 % SV(MOD-sp4): 48.4 ml SV(sp4-el): 49.8 ml LA A4 area: 12.5 cm2 RA A4 area: 15.1 cm2 Time Measurements MV dec time: 0.15 sec Doppler Measurements & Calculations MV E max gerald: 80.2 cm/sec Lat Peak E' Gerald: 9.6 cm/sec Med Peak E' Gerald: 7.9 cm/sec MV A max gerald: 74.2 cm/sec E/E' lat: 8.3 E/E' med: 10.2 MV E/A: 1.1 MV V2 max: 83.7 cm/sec MV P1/2t max gerald: 85.2 cm/sec Ao V2 max: 139.3 cm/sec MV max P.8 mmHg MV P1/2t: 52.7 msec Ao max P.8 mmHg MV V2 mean: 41.9 cm/sec MV dec slope: 473.6 cm/sec2 Ao V2 mean: 93.2 cm/sec MV mean P.87 mmHg MVA(P1/2t): 4.2 cm2 Ao mean P.9 mmHg MV V2 VTI: 27.3 cm Ao V2 VTI: 34.3 cm MVA(VTI): 3.2 cm2 AV (velocity ratio): 0.79 YEVGENIY(I,D): 2.6 cm2 YEVGENIY(V,D): 3.0 cm2 AI max gerald: 429.4 cm/sec LV V1 max: 128.2 cm/sec SV(LVOT): 88.4 ml AI max P.8 mmHg LV V1 max P.6 mmHg LV V1 mean P.9 mmHg AI dec slope: 253.8 cm/sec2 LV V1 mean: 77.1 cm/sec AI P1/2t: 495.6 msec LV V1 VTI: 27.1 cm PA V2 max: 66.5 cm/sec TR max gerald: 272.1 cm/sec PA max PG (full): 0.55 mmHg TR max P.6 mmHg PA V2 mean: 46.7 cm/sec PA mean PG (full): 0.39 mmHg ECHO/Echo Complete W/ Contrast Interpretation Summary The estimated ejection fraction is 65 %. Unable to assess diastolic dysfunction. Trivial mitral valve insufficiency. Mild (1+) aortic valve insufficiency. Ordering Physician: Harika Torre Referring Physician: Harika Torre Performed By: Blas Hanks RCS
== END | disposition home or self-care (01) ==
LOC: CVS 09:33
PROVIDERS: PCP Internal Medicine; Referring Provider Internal Medicine; Visit Provider Internal Medicine
DX: R94.31 Abnormal electrocardiogram [ECG] [EKG] (principal); I35.9 Nonrheumatic aortic valve disorder, unspecified
CPT/HCPCS: 93306; Q9957; A4216; C8929

== ENCOUNTER → 2024-09-08 | Outpatient (CLI) | payer MEDICARE, SELFPAY ==
--- NOTE | 2024-09-08 10:18 | BI_ITS ---
MAMMOGRAPHY - BILATERAL SCREENING 3-D TOMOSYNTHESIS REASON FOR EXAM: Female, 84 years old. SCRN MAMM (CAD)W/JA BILAT -- Encounter for screening mammogram for malignant neoplasm of breas PERTINENT HISTORY: No significant family history. TECHNIQUE: 2-D mammograms and 3-D Tomosynthesis of the breast (s) were performed. CAD was performed. COMPARISON: 09/06/2023 FINDINGS: The breast composition is composed of scattered fibroglandular density. Scattered benign calcifications are seen. No dense spiculated masses or suspicious microcalcifications are identified. No architectural distortion is identified. There is no skin thickening or retraction. There has been no significant change since the prior study. BI/SCRN MAMM (CAD)W/JA BILAT IMPRESSION: No mammographic signs of malignancy. Routine yearly mammograms recommended. ASSESSMENT CATEGORY: BIRADS Category 1: Negative. A letter regarding these results will be sent to the patient by the facility within 30 days. FOLLOW UP RECOMMENDATION: Yearly follow up mammogram recommended. (A) Approximately 10% of breast cancers are not detected by mammography. A normal mammogram should not delay biopsy of a clinically suspicious abnormality. Electronically Signed: Joseph Pascual MD at 17:48 EST ,
== END | disposition home or self-care (01) ==
LOC: OPBI 10:18
PROVIDERS: PCP Internal Medicine; Referring Provider Internal Medicine; Visit Provider Internal Medicine
DX: Z12.31 Encounter for screening mammogram for malignant neoplasm of breast (principal)
CPT/HCPCS: 77063; 77067

== ENCOUNTER 2025-01-22 10:13 | Emergency (ER) | payer MEDICARE, SELFPAY ==
[2025-01-22 10:13] VITALS: BP 164/68; PULSE 58; RESP 14; TEMP 36.6; O2SAT 98
--- NOTE | 2025-01-22 11:19 | CT_ITS ---
PROCEDURE: ABDOMEN/PELVIS W IV CONT ONLY 01/22/2025 REASON FOR EXAM: ABDOMINAL PAIN, DIARRHEA TECHNIQUE: Contiguous axial scans of 3.75 mm slice thicknesses. Sagittal and coronal reconstruction images were obtained. One or more dose reduction techniques were used (e.g., automated exposure control, adjustment of mA and/or kv according to patient size, use of iterative reconstruction technique). PATIENT PREPARATION: Per protocol CONTRAST: Isovue-300 VOLUME: Not given mL RADIATION DOSE SUMMARY: DLP: 684.61 mGycm COMPARISON: No relevant prior. FINDINGS: Lung bases: Unremarkable. Liver: Normal in size. Normal attenuation. No masses. No biliary dilatation. Gallbladder: Surgically absent. Spleen: Normal in size. A splenule is noted on axial image 33 measuring 1.4 cm. Pancreas: Suspicion of mild inflammatory change in the region of the pancreatic head. Adrenals: No nodules. No thickening. Kidneys: Bilaterally symmetrical excretion. No masses. No calcifications. Bladder: Unremarkable. Reproductive Organs: Uterus is surgically absent. Bowel: Diverticuli in the distal descending and sigmoid colon. Stationary hiatal hernia. Appendix: Unremarkable. Lymph nodes: No adenopathy. Vasculature: Mild atherosclerotic calcifications. Peritoneum / Retroperitoneum: Moderate ascites. No free air. No masses. Anterior abdominal wall: Unremarkable. Bones: Multilevel spondylosis and degenerative disc disease. CT/Abdomen/Pelvis W IV Cont ONLY IMPRESSION: Suspicion of early pancreatitis. Correlate with serum amylase and lipase level s. Moderate ascites. Status post cholecystectomy and hysterectomy. A splenule. Diverticulosis without signs of diverticulitis. Stationary hiatal hernia. Reading Location: [facility]
--- NOTE | 2025-01-22 11:22 | ED.VIS.GI ---
HPI HPI - GI History of Present Illness Chief Complaint: Abd Pain Narrative Narrative: 84-year-old female past medical history/surgical history of remote cholecystectomy presents with 4 days of diffuse abdominal pain, and diarrhea. She states her symptoms began Sunday afternoon. Started having diffuse abdominal pain and states that her abdomen feels like it is in knots. Later on she developed diarrhea and loose stool without any blood in her stool. She states that when she does vomit, it is more phlegm and dry heaving. She may have felt feverish but denies any rigors. No exacerbating or alleviating factors. No dysuria or hematuria. [facility] Medical History Wears hearing aid High cholesterol Gallstones CAD (coronary artery disease) HTN (hypertension) Home Medications ?Medication ?Instructions ?Recorded ?Last Taken ?Type aspirin 81 mg tablet,delayed 81 mg PO DAILY 03/07/22 01/22/25 History release atenolol 25 mg tablet 25 mg PO DAILY 03/07/22 01/22/25 History atorvastatin 10 mg tablet 10 mg PO QHS 03/07/22 01/21/25 History coenzyme Q10 75 mg capsule (Ultra 75 mg PO DAILY 03/07/22 01/22/25 History CoQ10) losartan 50 mg tablet 50 mg PO DAILY 03/07/22 01/22/25 History spironolactone 25 mg tablet 25 mg PO DAILY 03/07/22 01/22/25 History vitamin D3 1,250 mcg (50,000 1 cap PO DAILY 03/07/22 01/22/25 History unit)-vitamin K2 200 mcg capsule Allergy/AdvReac Type Severity Reaction Status Date / Time amoxicillin Allergy Unknown Verified 01/22/25 10:14 Surgical History S/P tubal ligation S/P hysterectomy Social History Smoking Status: Never smoker alcohol intake: never ROS ROS ED ROS Narrative Review of systems positive for abdominal pain, mild nausea and dry heaving but more diarrhea and nonbloody stool. Positive abdominal pain and cramping diffusely. Denies other symptoms. EXAM Physical Exam Narrative Exam Narrative: Afebrile. Vital signs noted. Nontoxic-appearing. Cardiovascular examination reveals mild bradycardia at 58 bpm. Lungs clear to auscultation bilaterally. The abdomen is soft with minimal diffuse tenderness to palpation and positive bowel sounds. No guarding, rebound, or rigidity. Neurological examination nonfocal nonlateralizing. Awake, alert, interactive. Const Vital Signs: 01/22/25 10:13 01/22/25 12:13 01/22/25 14:00 Temperature 98 F Temperature Source Temporal Pulse Rate 58 L Respiratory Rate 14 Blood Pressure 164/68 H 130/85 H 128/83 H Blood Pressure Mean 100 100 98 Pulse Ox 98 Oxygen Delivery Method Room Air 01/22/25 15:16 Temperature 98 F Temperature Source Pulse Rate 58 L Respiratory Rate 14 Blood Pressure 139/55 H Blood Pressure Mean 83 Pulse Ox 95 Oxygen Delivery Method MDM MDM MDM Narrative Medical decision making narrative: Differential diagnosis includes but not limited to bowel obstruction versus colitis versus diverticulitis versus pyelonephritis. I have lower suspicion for pyelonephritis because she is not having dysuria. I do not feel that she has an intra-abdominal sepsis that she is not hypotensive, nor is she tachycardic. I do feel CT imaging is indicated. She was administered morphine and ondansetron for analgesia. I reviewed her laboratory work and she does have a leukocytosis of 15.8 which I think is nonspecific, or may be mild demargination, hemoglobin likely hemoconcentrated at 15.2 with hematocrit 45.7, platelet count normal at 248. BUN elevated at 30 with creatinine 1.15, glucose 104 with anion gap normal at 13. LFTs are grossly unremarkable. Lipase normal at 29. Urinalysis negative for infection. I do not feel antibiotics are indicated. I reviewed the radiology report of the CT of the abdomen pelvis and while she has moderate ascites there is inflammation suspicious for early pancreatitis at the head of the pancreas. Repeat examination shows her abdomen remains soft and she feels improved. The CT also does show moderate ascites. They recommend clinical correlation with lipase and amylase. I added on an amylase which is normal. At this point in time, I do not suspect pancreatic mass as it was not commented on in radiology report and I did not visualize the pancreatic mass on my review of the CT imaging. Through shared decision-making, patient prefers discharge home. I discussed patient with Dr. Torre who will follow-up with the patient in the next few days. Return instructions to the emergency department were reviewed. Disposition is discharged home in stable condition. History & Record Review Discussion w/independent historian: Patient Additional record(s) reviewed:: Prior ED visit (1 visit for biliary colic) Lab Data Attestation: I reviewed the patient's lab results. Labs: Laboratory Results - last 24 hr 01/22/25 01/22/25 10:27 13:16 WBC 15.8 H RBC 5.30 Hgb 15.2 H Hct 45.7 MCV 86.2 MCH 28.7 MCHC 33.3 RDW Std Deviation 44.5 H RDW Coeff of Vanessa 14.2 Plt Count 248 MPV 10.5 Immature Gran % (Auto) 0.900 Neut % (Auto) 75.8 H Lymph % (Auto) 12.3 L [place] % (Auto) 10.2 H Eos % (Auto) 0.6 Baso % (Auto) 0.2 Absolute Neuts (auto) 12.0 H Absolute Lymphs (auto) 1.95 Nucleated RBC % 0 Platelet Estimate A Sodium 135 Potassium 4.1 Chloride 102 Carbon Dioxide 20.1 L Anion Gap 13 BUN 30 H Creatinine 1.15 Est GFR (MDRD) Non-Af 47 L BUN/Creatinine Ratio 25.8 H Glucose 104 H Calcium 9.3 Total Bilirubin 1.45 H AST 22 ALT 21 Alkaline Phosphatase 104 Total Protein 7.3 Albumin 4.2 Globulin 3.1 Albumin/Globulin Ratio 1.4 Amylase 31 Lipase 29 Urine Color Yellow Urine Clarity Clear Urine pH 5.0 Ur Specific [place] 1.010 Urine Protein 15 H Urine Glucose (UA) Normal Urine Ketones Negative Urine Occult Blood 50 H Urine Nitrite Negative Urine Bilirubin Negative Urine Urobilinogen Normal Ur Leukocyte Esterase 25 H Urine RBC 0-5 SEEN Urine WBC 0-5 SEEN Ur Squamous Epith Cells 0-5 SEEN Urine Bacteria 0 SEEN Hyaline Casts 0-5 SEEN Urine Mucus 0 SEEN Radiography Diagnostic Testing: Clinical Impression(s) from Imaging Studies Abdomen/Pelvis CT 01/22/25 11:19 IMPRESSION: Suspicion of early pancreatitis. Correlate with serum amylase and lipase levels. Moderate ascites. Status post cholecystectomy and hysterectomy. A splenule. Diverticulosis without signs of diverticulitis. Stationary hiatal hernia. [facility] T[facility] Chief Complaint: Abd Pain ED Provider: Mp Cabrera Dx/Rx/DC Orders Clinical Impression: Abdominal pain, Acute inflammation of the pancreas, Ascites Instructions: ED Ascites, ED Pancreatitis Prescriptions: No Action atenolol 25 mg tablet 25 mg PO DAILY spironolactone 25 mg tablet 25 mg PO DAILY atorvastatin 10 mg tablet 10 mg PO QHS losartan 50 mg tablet 50 mg PO DAILY aspirin 81 mg tablet,delayed release (DR/EC) 81 mg PO DAILY vitamin D3-vitamin K2 1,250-200 mcg capsule 1 cap PO DAILY Ultra CoQ10 75 mg capsule 75 mg PO DAILY Primary Care Provider: Harika Torre Referrals: Harika Torre, [Primary Care Provider] - 1 Day for another exam Activity Restrictions/Additional Instructions: Start a clear liquid diet and advance as tolerated. Follow-up with your primary care provider tomorrow or Sunday for repeat examination. Return to the emergency department with nausea and vomiting, increased pain, fever, new or worsening symptoms. Print Language: Andorran Disposition Disposition: Home, Self Care Discharge Date/Time: 01/22/25 15:18
[2025-01-22] MEDS: Morphine 4 MG/ML Syringe IV (11:28)
[2025-01-22] MEDS: Ondansetron 4 MG/2 ML Vial IV (11:28)
[2025-01-22 11:56] LABS: Absolute Lymphocyte Count 1.95 X10^3/uL (0.83-4.51); Basophil# 0.03 X10^3/uL; Basophil% 0.2 % (0-1); Eosinophil# 0.09 X10^3/uL; Eosinophils% 0.6 % (0-5); Hematocrit 45.7 % (37-47); Hemoglobin 15.2 g/dL (12.0-15.0); Lymphocyte # 1.95 X10^3/ul (0.83-4.51); Lymphocyte % 12.3 % (19-41); Mean Corp Hgb Conc 33.3 g/dL (32-36); Mean Corpuscular Hgb 28.7 pg (27.0-32.0); Mean Corpuscular Volume 86.2 fL (81-99); Mean Platelet Vol. 10.5 fl (6.2-12.0); Monocyte# 1.61 X10^3/uL; Monocyte% 10.2 % (0-10); NRBC Flagged by Analyzer 0 % (0-5); Neutrophil # 12.01 X10^3/uL (2.7-7.7); Neutrophil % 75.8 % (47-70); POSITIVE DIFFERENTIAL YES; Platelet Count 248 K/mm3 (150-450); RBC Distribution Width CV 14.2 % (11.6-14.6); RBC Distribution Width SD 44.5 fl (35.1-43.9); White Blood Count 15.8 K/mm3 (4.4-11.0)
[2025-01-22 11:58] LABS: Differential Indicated SCAN CRITERIA MET
[2025-01-22 12:13] VITALS: BP 130/85
[2025-01-22 12:23] LABS: Platelet Estimate A (ADEQ)
[2025-01-22 12:29] LABS: Lipase 29 U/L (13-75)
[2025-01-22 12:33] LABS: ALB/GLOB Ratio 1.4 RATIO (0.9-2.4); AST(SGOT) 22 U/L (<=31); Alanine Aminotransfer ALT/SGPT 21 U/L (<=34); Albumin, Serum 4.2 g/dL (3.4-4.8); Alkaline Phosphatase 104 U/L (35-104); Anion Gap 13 (5-15); BUN 30 mg/dL (4-19); BUN/Creat Ratio 25.8 RATIO (10-20); Calcium,Total 9.3 mg/dL (7.6-11.0); Carbon Dioxide 20.1 mmol/L (21.0-32.0); Chloride 102 mmol/L (98-108); Creatinine, Serum 1.15 mg/dL (0.70-1.20); EST Glomerular Filtration Rate 47 (>60); Globulin 3.1 g/dL (2.2-4.2); Glucose 104 mg/dL (70-99); Potassium 4.1 mmol/L (3.3-5.1); Protein, Total 7.3 g/dL (5.9-8.4); Sodium Level 135 mmol/L (133-145); Total Bilirubin 1.45 mg/dL (0.00-1.30)
[2025-01-22 13:24] LABS: Bacteria 0 SEEN /hpf (None Seen); Mucous, Urine 0 SEEN /hpf (<or=2+)
[2025-01-22 13:27] LABS: Color, Urine Yellow (Yellow); Glucose, Dipstick Normal (Normal); Ketone-Dipstick Negative (Negative); Leukocyte Esterase-Dipstick 25 /ul (Negative); Nitrite-Dipstick Negative (Negative); Occult Blood-Urine 50 /ul (Negative); Protein-Dipstick 15 mg/dl (Negative); Urine Bilirubin Dipstick Negative (Negative); Urine Clarity Clear (Clear); Urine Urobilinogen Normal (Normal)
[2025-01-22 13:44] LABS: Squamous Epithelial Cells - UA 0-5 SEEN /hpf (5-10); White Blood Cells 0-5 SEEN /hpf (0-5)
[2025-01-22 13:45] LABS: Hyaline Cast 0-5 SEEN /lpf (0-5); Red Blood Cells-Urine 0-5 SEEN /hpf (0-5)
[2025-01-22 14:00] VITALS: BP 128/83
[2025-01-22 14:19] LABS: Amylase 31 U/L (28-100)
[2025-01-22 15:16] VITALS: BP 139/55; PULSE 58; RESP 14; TEMP 36.6; O2SAT 95
== END 2025-01-22 15:18 | disposition home or self-care (01) ==
PROVIDERS: Emergency Provider Emergency Medicine; PCP Internal Medicine; Visit Provider Emergency Medicine
DX: K85.90 Acute pancreatitis without necrosis or infection, unspecified (principal); R10.9 Unspecified abdominal pain; R19.7 Diarrhea, unspecified; R18.8 Other ascites; I10 Essential (primary) hypertension; E78.00 Pure hypercholesterolemia, unspecified; Z90.710 Acquired absence of both cervix and uterus; I25.10 Atherosclerotic heart disease of native coronary artery without angina pectoris; Z79.82 Long term (current) use of aspirin; Z98.51 Tubal ligation status; Z90.49 Acquired absence of other specified parts of digestive tract; K57.30 Diverticulosis of large intestine without perforation or abscess without bleeding
CPT/HCPCS: 74177; 80053; 81001; 82150; 83690; 85025; 96374; 96375; 99282; Q9967; A4216; J2405